=== PATIENT | male | born 1945 | race Caucasian/White ===

== ENCOUNTER 2016-12-10 11:38 | Day surgery (SDC) | payer MEDICARE, OTHER ==
[2016-12-09 12:26] LABS: HEMATOCRIT 39.8 % (39.2-51.8); HEMOGLOBIN 13.7 g/dL (13.7-18.0)
[2016-12-09 12:30] LABS: PATH.CAST-FLAG NOT PRESENT; SPERM-FLAG NOT PRESENT; SRC-FLAG NOT PRESENT; XTAL-FLAG NOT PRESENT; YLC-FLAG NOT PRESENT
[2016-12-09 12:38] LABS: BLOOD UREA NITROGEN 22 mg/dL (7-18)
[2016-12-09 12:41] LABS: ASPARTATE AMINO TRANSFERASE 21 U/L (15-37)
[~2016-12-10] VITALS: Ht 165.1 cm; Wt 75.2 kg
[~2016-12-10 11:38] MED LIST: METF500T4 PO; MORP10CA7 PO; OXYC5CAP2 PO; POTA8CAP PO; TAMS-11 PO; [UNRECOGNIZED DRUG - REMARK] PO
[2016-12-10] MEDS ORDERED: LACTATED RINGERS 1,000 ML IV SCH (12:00)
[2016-12-10 12:28] VITALS: BP 150/91
[2016-12-10] MEDS ORDERED: LOSA100T6 PO (12:35)
[2016-12-10] MEDS ORDERED: MORP30TA3 PO (12:35)
[2016-12-10] MEDS ORDERED: POTA10TA5 PO (12:35)
[2016-12-10] MEDS ORDERED: GENTAMICIN 80 MG/2 ML ONE ×2 (14:27→14:30)
[2016-12-10] MEDS ORDERED: OXYcodone 5 MG/5 ML ORAL.SOL UDC PO PRN (14:30)
[2016-12-10] MEDS ORDERED: hydrALAzine 20 MG/ML, 1ML IV PRN (14:30)
[2016-12-10] MEDS ORDERED: ONDANSETRON 2MG/ML, 2ML ONE (14:30)
[2016-12-10] MEDS ORDERED: PHENYLEPHRINE 10 MG/ML ONE (14:30)
[2016-12-10] MEDS ORDERED: SUCCINYLCHOLINE 20 MG/ML, 10ML ONE (14:30)
[2016-12-10] MEDS ORDERED: PROPOFOL 10 MG/ML, 20ML ONE (14:30)
[2016-12-10] MEDS ORDERED: ONDANSETRON 2MG/ML, 2ML IVPush PRN (14:30)
[2016-12-10] MEDS ORDERED: HYDROmorphone 1 MG/ML, 1ML IV PRN (14:30)
[2016-12-10] MEDS ORDERED: ACETAMINOPHEN 325 MG TABLET PO PRN (14:30)
[2016-12-10] MEDS ORDERED: EPHEDRINE 50 MG/ML, 1ML IVPush PRN (14:30)
[2016-12-10] MEDS ORDERED: ALBUTEROL SULFATE 2.5 MG/3 ML NPPB PRN (14:30)
[2016-12-10] MEDS ORDERED: METOPROLOL 1 MG/ML, 5ML IV PRN (14:30)
[2016-12-10] MEDS ORDERED: HYDROcodone/APAP 7.5-325MG/15ML UDC PO PRN (14:30)
[2016-12-10] MEDS ORDERED: DEXAMETHASONE 4 MG/ML, 1ML ONE (14:30)
[2016-12-10] MEDS ORDERED: FENTANYL PF 100 MCG/2ML IV PRN (14:30)
[2016-12-10] MEDS ORDERED: LABETALOL 5MG/ML, 20ML IV PRN (14:30)
[2016-12-10] MEDS ORDERED: ROCURONIUM 10 MG/ML ONE (14:30)
[2016-12-10] MEDS ORDERED: MIDAZOLAM 1 MG/ML, 2ML ONE (14:32)
[2016-12-10] MEDS ORDERED: FENTANYL PF 100 MCG/2ML ONE (14:32)
== END 2016-12-10 18:30 ==
LOC: OUT 11:38
PROVIDERS: ATTEND Urology
DX: N20.0 Calculus of kidney (principal); I10 Essential (primary) hypertension; E78.5 Hyperlipidemia, unspecified; E11.9 Type 2 diabetes mellitus without complications; F32.9 Major depressive disorder, single episode, unspecified; Z87.440 Personal history of urinary (tract) infections; Z87.39 Personal history of other diseases of the musculoskeletal system and connective tissue; Z98.890 Other specified postprocedural states; G89.29 Other chronic pain
CPT/HCPCS: 36415; 50590; 74000; 80053; 81001; 82962; 85025; 85610; 85730; 87086; 93005; J0330; J1100; J1580; J2250; J2370; J2405; J2704; J3010; J7120